=== PATIENT | male | born 1985 ===

== ENCOUNTER 2016-06-18 04:57 | Emergency (ER) | payer OTHER ==
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
--- NOTE | 2016-06-18 07:56 | ED ORDER SUMMARY ---
..... Patient: BISHOP PETERSEN OrderSheet [facility] VisitID: [id number] [address] [place] [address] 31y, M Registration Date/Time: 06/18/2016 ORDER SHEET Weight: 106.5 kg (stated) Allergies: No Known Drug Allergy GENERAL ORDERS: MEDICATION ORDERS: Tdap IM 0.5 mL (NOW) (05:40 06/18/2016 Mary Ellen DELGADO) (5:48 Blair R.N.) IV FLUIDS: ORDER SHEET NOTES: [Electronically signed by Aminah Jay R.N. (10:48 06/18/2016)] [Electronically signed by Iglesia Ty MD (22:07 06/19/2016)] [Electronically locked/signed by Aminah Jay R.N. (10:48 06/18/2016)]
--- NOTE | 2016-06-18 07:56 | ED ORDER SUMMARY ---
..... Patient: BISHOP PETERSEN OrderSheet [facility] VisitID: [id number] [address] [place] [address] 31y, M Registration Date/Time: 06/18/2016 ORDER SHEET Weight: 106.5 kg (stated) Allergies: No Known Drug Allergy GENERAL ORDERS: MEDICATION ORDERS: Tdap IM 0.5 mL (NOW) (05:40 06/18/2016 Mary Ellen DELGADO) (5:48 Blair R.N.) IV FLUIDS: ORDER SHEET NOTES: [Electronically signed by Aminah Jay R.N. (10:48 06/18/2016)] [Electronically signed by Iglesia Ty MD (22:07 06/19/2016)] [Electronically locked/signed by Aminah Jay R.N. (10:48 06/18/2016)]
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
--- NOTE | 2016-06-19 22:07 | ED MAR SUMMARY ---
..... Medication Administration Record [facility] [address] [place] [address] Patient: BISHOP PETERSEN Visit ID: [id number] 31y, M Weight: 106.5 kg Height/Length: 71 in BMI: 32.8 ALLERGIES: No Known Drug Allergy Given 05:45 06/18/2016 Cipriano Greco RRodrigoNRodrigo Medication Administered: TDAP [IM], Dose: 0.5 mL IM. Medication Ordered: Tdap IM 0.5 mL (NOW).
--- NOTE | 2016-06-19 22:07 | ED DISCHARGE INSTRUCTIONS ---
Patient: BISHOP PETERSEN General Instructions [facility] VisitID: [id number] [place] [address] 31y, M Registration Date/Time: 06/18/2016 Multiple contusions to the nose and right cheek area. Alcohol intoxication. INSTRUCTIONS (YOU SHOULD ESTABLISH CARE WITH THE [facility]. PLEASE TAKE CARE OF YOUR HIV. YOU CAN LIVE A LONG AND GOOD LIVE HIV+ PLEASE CONSIDER ALCOHOL TREATMENT THROUGH THE [facility].). Follow-up: Follow up with doctor [facility] Monday. Understanding of the discharge instructions verbalized by patient. ADDITIONAL INFORMATION Facial Contusion (With Wake-Up) A facial contusion is a bruise with swelling and sometimes bleeding under the skin. The swelling should start to go down within two days. Although there may be no signs of a serious injury at this time, symptoms may appear later which could be a sign of a more serious problem. Therefore, watch for the warning signs below. Home care The following guidelines will help you care for your injury at home: During the next 24 hours you must stay with someone who can watch you for the warning signs below. This person shouldwake you every two hoursto be sure that you can be awakened easily and that you respond normally. If you have swelling of the face, apply an ice pack (ice cubes in a plastic bag, wrapped in a towel) for 20 minutes every 12 hours until the swelling starts to go down. If you have scrapes or cuts on your face, clean them daily with soap and water. Apply an antibiotic ointment or cream for the first few days to prevent infection. You may use acetaminophen or ibuprofen to control pain, unless another pain medicine was prescribed.If you have chronic liver or kidney disease or ever had a stomach ulcer or GI bleeding, talk with your doctor before using these medicines. Do not use ibuprofen in children under six months of age. For the next 24 hours: Do not take alcohol, sedatives or medicines that make you sleepy. Do not drive or operate machinery. Avoid strenuous activities. No lifting or straining. If you have had any symptoms of aconcussiontoday (nausea, vomiting, dizziness, confusion, headache, memory loss or if you were knocked out), do not return to sports or any activity that could result in another head injury until all symptoms are gone and you have been cleared by your doctor. A second head injury before fully recovering from the first one can lead to serious brain injury. Follow-up care Follow up with your doctor in one week or as directed. Note:Any X-rays or CT scans taken will be reviewed by a radiologist. You will be notified of any new findings that may affect your care. When to seek medical care Get prompt medical attention if any of the following occur: Repeated vomiting Severe or worsening headache or dizziness Unusual drowsiness, or unable to awaken as usual Confusion or change in behavior or speech, memory loss, blurred vision Convulsion (seizure) Increasing scalp or face swelling Redness, warmth or pus from the swollen area Fluid drainage or bleeding from the nose or ears Fever of 100.4F (38C) or higher, or as directed by your health care provider Increasing jaw pain with chewing or increasing pain in the sinuses Nose looks crooked or cannot breathe through your nose after swelling goes down Alcohol Intoxication Alcohol intoxication occurs when you drink alcohol faster than your liver can remove it from your system. Alcohol intoxication affects your judgment and coordination. Very high blood alcohol levels can cause coma, very slow breathing and even . If you drink alcohol every day, this may gradually cause permanent damage to your liver, brain, heart, pancreas and other organs. Alcohol use during may cause permanent damage to the growing baby. Home Care: Do not drink any more alcohol. DO NOT DRIVE until all effects of the alcohol have worn off. Get lots of rest over the next few days. Drink plenty of water and other non-alcoholic liquids. Try to eat regular meals. If you have been drinking heavily on a daily basis, you may go through alcohol withdrawl. This is also called the shakes or DTs. The usual symptoms last 3 to 4 days and may include nervousness, shakiness, nausea, sweating or sleeplessness. During this time, it is best that you stay with family or friends who can help and support you. You can also admit yourself to a residential detox program. If your symptoms are severe, contact your doctor for medicines to help. Follow Up: If alcohol is causing a problem in your life, these and other organizations can help you: Alcoholics Anonymous offers support through a self-help fellowship. There are no dues or fees. See the Yellow Pages and call for time and place of meetings. www.aa.org [employer]ur offers support to families of alcohol users. 978.826.4471 www.al-laurel.org National [place] On Alcoholism And Drug Dependence 515-349-1976 www.ncadd.org There are also inpatient or residential alcohol detox programs. Check the Internet or phonebook Yellow Pages under Drug Abuse & Treatment Centers. Get Prompt Medical Attention if any of the following occur: there) You have been given the following additional information: Facial Contusion, With Wakeup Alcohol Intoxication (Electronically signed by Iglesia Ty MD 06/19/2016 22:07)
--- NOTE | 2016-06-19 22:07 | ED MED RECONCILIATION SUMMARY ---
Patient: BISHOP PETERSEN Medication Reconciliation Report [facility] VisitID: [id number] [address] [place] [address] 31y, M Registration Date/Time: 06/18/2016 Weight: 106.5 kg Height/Length: 71 in. BMI: 32.8 ALLERGIES: No Known Drug Allergy The patient's Home Medications are listed below: NONE. The source(s) of the original Home Medication information: patient's family member The following Medications were given to the patient in the Emergency Department: TDAP [IM] IM 0.5 mL, administered: 06/18/2016 5:45:00 AM The following Medications were prescribed to the patient: None.
--- NOTE | 2016-06-19 22:07 | ED DISCHARGE INSTRUCTIONS ---
Patient: BISHOP PETERSEN General Instructions [facility] VisitID: [id number] [place] [address] 31y, M Registration Date/Time: 06/18/2016 Multiple contusions to the nose and right cheek area. Alcohol intoxication. INSTRUCTIONS (YOU SHOULD ESTABLISH CARE WITH THE [facility]. PLEASE TAKE CARE OF YOUR HIV. YOU CAN LIVE A LONG AND GOOD LIVE HIV+ PLEASE CONSIDER ALCOHOL TREATMENT THROUGH THE [facility].). Follow-up: Follow up with doctor [facility] Monday. Understanding of the discharge instructions verbalized by patient. ADDITIONAL INFORMATION Facial Contusion (With Wake-Up) A facial contusion is a bruise with swelling and sometimes bleeding under the skin. The swelling should start to go down within two days. Although there may be no signs of a serious injury at this time, symptoms may appear later which could be a sign of a more serious problem. Therefore, watch for the warning signs below. Home care The following guidelines will help you care for your injury at home: During the next 24 hours you must stay with someone who can watch you for the warning signs below. This person shouldwake you every two hoursto be sure that you can be awakened easily and that you respond normally. If you have swelling of the face, apply an ice pack (ice cubes in a plastic bag, wrapped in a towel) for 20 minutes every 12 hours until the swelling starts to go down. If you have scrapes or cuts on your face, clean them daily with soap and water. Apply an antibiotic ointment or cream for the first few days to prevent infection. You may use acetaminophen or ibuprofen to control pain, unless another pain medicine was prescribed.If you have chronic liver or kidney disease or ever had a stomach ulcer or GI bleeding, talk with your doctor before using these medicines. Do not use ibuprofen in children under six months of age. For the next 24 hours: Do not take alcohol, sedatives or medicines that make you sleepy. Do not drive or operate machinery. Avoid strenuous activities. No lifting or straining. If you have had any symptoms of aconcussiontoday (nausea, vomiting, dizziness, confusion, headache, memory loss or if you were knocked out), do not return to sports or any activity that could result in another head injury until all symptoms are gone and you have been cleared by your doctor. A second head injury before fully recovering from the first one can lead to serious brain injury. Follow-up care Follow up with your doctor in one week or as directed. Note:Any X-rays or CT scans taken will be reviewed by a radiologist. You will be notified of any new findings that may affect your care. When to seek medical care Get prompt medical attention if any of the following occur: Repeated vomiting Severe or worsening headache or dizziness Unusual drowsiness, or unable to awaken as usual Confusion or change in behavior or speech, memory loss, blurred vision Convulsion (seizure) Increasing scalp or face swelling Redness, warmth or pus from the swollen area Fluid drainage or bleeding from the nose or ears Fever of 100.4F (38C) or higher, or as directed by your health care provider Increasing jaw pain with chewing or increasing pain in the sinuses Nose looks crooked or cannot breathe through your nose after swelling goes down Alcohol Intoxication Alcohol intoxication occurs when you drink alcohol faster than your liver can remove it from your system. Alcohol intoxication affects your judgment and coordination. Very high blood alcohol levels can cause coma, very slow breathing and even . If you drink alcohol every day, this may gradually cause permanent damage to your liver, brain, heart, pancreas and other organs. Alcohol use during may cause permanent damage to the growing baby. Home Care: Do not drink any more alcohol. DO NOT DRIVE until all effects of the alcohol have worn off. Get lots of rest over the next few days. Drink plenty of water and other non-alcoholic liquids. Try to eat regular meals. If you have been drinking heavily on a daily basis, you may go through alcohol withdrawl. This is also called the shakes or DTs. The usual symptoms last 3 to 4 days and may include nervousness, shakiness, nausea, sweating or sleeplessness. During this time, it is best that you stay with family or friends who can help and support you. You can also admit yourself to a residential detox program. If your symptoms are severe, contact your doctor for medicines to help. Follow Up: If alcohol is causing a problem in your life, these and other organizations can help you: Alcoholics Anonymous offers support through a self-help fellowship. There are no dues or fees. See the Yellow Pages and call for time and place of meetings. www.aa.org [employer] offers support to families of alcohol users. 479.135.9307 www.al-laurel.org National [place] On Alcoholism And Drug Dependence 616-227-3741 www.ncadd.org There are also inpatient or residential alcohol detox programs. Check the Internet or phonebook Yellow Pages under Drug Abuse & Treatment Centers. Get Prompt Medical Attention if any of the following occur: there) You have been given the following additional information: Facial Contusion, With Wakeup Alcohol Intoxication (Electronically signed by Iglesia Ty MD 06/19/2016 22:07)
--- NOTE | 2016-06-19 22:07 | ED MED RECONCILIATION SUMMARY ---
Patient: BISHOP PETERSEN Medication Reconciliation Report [facility] VisitID: [id number] [address] [place] [address] 31y, M Registration Date/Time: 06/18/2016 Weight: 106.5 kg Height/Length: 71 in. BMI: 32.8 ALLERGIES: No Known Drug Allergy The patient's Home Medications are listed below: NONE. The source(s) of the original Home Medication information: patient's family member The following Medications were given to the patient in the Emergency Department: TDAP [IM] IM 0.5 mL, administered: 06/18/2016 5:45:00 AM The following Medications were prescribed to the patient: None.
--- NOTE | 2016-06-19 22:07 | ED MAR SUMMARY ---
..... Medication Administration Record [facility] [address] [place] [address] Patient: BISHOP PETERSEN Visit ID: [id number] 31y, M Weight: 106.5 kg Height/Length: 71 in BMI: 32.8 ALLERGIES: No Known Drug Allergy Given 05:45 06/18/2016 Cipriano Greco RRodrigoNRodrigo Medication Administered: TDAP [IM], Dose: 0.5 mL IM. Medication Ordered: Tdap IM 0.5 mL (NOW).
== END 2016-06-18 09:10 | disposition home or self-care (01) ==
LOC: ED SRH 04:57
DX: S00.83XA Contusion of other part of head, initial encounter (principal); S00.33XA Contusion of nose, initial encounter; F10.129 Alcohol abuse with intoxication, unspecified; W22.8XXA Striking against or struck by other objects, initial encounter; Y92.410 Unspecified street and highway as the place of occurrence of the external cause; Z23 Encounter for immunization